=== PATIENT | female | born 1990 | race African-American/Black ===

== ENCOUNTER 2016-10-24 02:37 | Inpatient (IN) | payer MEDICAID, OTHER ==
[~2016-10-24] VITALS: Ht 149.9 cm; Wt 81.6 kg
[~2016-10-24 02:37] MED LIST: ARIP10TA14 PO; DIVA500T52 PO; HYDR-4031 PO
[2016-10-24 03:19] LABS: BASOPHILS # (AUTO) 0.15 K/uL (0.00-0.20); BASOPHILS % (AUTO) 0.8 % (0.0-2.0); EOSINOPHILS # (AUTO) 0.02 K/uL (0.00-0.70); EOSINOPHILS % (AUTO) 0.12 % (1.0-6.0); HEMATOCRIT 44.1 % (36-46); HEMOGLOBIN 14.7 g/dL (12.0-16.0); LYMPHOCYTES # (AUTO) 3.1 K/uL (1.0-4.8); LYMPHOCYTES % (AUTO) 15.6 % (22.0-44.0); MEAN CORPUSCULAR HEMOGLOBIN 30.7 pg (26.0-34.0); MEAN CORPUSCULAR HGB CONC 33.4 G/dL (31.0-37.0); MEAN CORPUSCULAR VOLUME 92 fL (80-100); MONOCYTES # (AUTO) 1.2 K/uL (0.1-1.0); MONOCYTES % (AUTO) 6.1 % (2.0-9.0); NEUTROPHILS # (AUTO) 15.3 K/uL (1.8-7.7); NEUTROPHILS % (AUTO) 77.4 % (40.0-70.0); PLATELET COUNT (AUTO) 378 K/uL (150-450); RED BLOOD CELL COUNT(AUTO) 4.79 MIL/uL (4.00-5.20); RED CELL DISTRIBUTION WIDTH 14.3 % (11.5-14.5); WHITE BLOOD COUNT (AUTO) 19.8 K/uL (4.5-11.0)
[2016-10-24] MEDS ORDERED: HALOPERIDOL LACTATE 5 MG/ML VIAL IM ONE (03:30)
[2016-10-24] MEDS ORDERED: LORazepam 2 MG/ML VIAL IM ONE (03:30)
[2016-10-24] MEDS ORDERED: DiphenhydrAMINE HCL 50 MG/ML VIAL IM ONE (03:30)
[2016-10-24 03:38] LABS: ANION GAP 14 mmol/L (8-16); CALCIUM, TOTAL 8.8 mg/dL (8.8-10.5); CARBON DIOXIDE 21 mmol/L (22-29); CHLORIDE 102 mmol/L (98-107); GLOMERULAR FILTR. RATE CALC > 60 mL/min (>60); POTASSIUM 3.8 mmol/L (3.5-5.1); SODIUM SERUM 137 mmol/L (136-145); UREA NITROGEN, BLOOD 5 mg/dL (7-18)
[2016-10-24 03:44] LABS: ALANINE AMINOTRANSFERASE 45 U/L (12-78); ALBUMIN 3.7 g/dL (3.4-5.0); ASPARTATE AMINOTRANSFERASE 64 U/L (15-37); BILIRUBIN,TOTAL 0.4 mg/dL (0.1-1.0); TOTAL PROTEIN, SERUM 7.4 g/dL (6.4-8.2)
[2016-10-24] MEDS ORDERED: SODIUM CHLORIDE 0.9% 250 ML IRRIG SOLUTION BOTTLE IRRIG ONE (04:30)
[2016-10-24] MEDS ORDERED: PERTUSS(ACELL),DIPH,TET VAC/PF 0.5 ML VIAL IM ONE (04:30)
[2016-10-24] MEDS ORDERED: LIDOCAINE HCL BUFFERED 1% W/EPI 1:100,000 20 ML VIAL INJ ONE (04:45)
[2016-10-24 06:37] LABS: VALPROIC ACID < 3 mcg/mL (50-100)
[2016-10-24] MEDS ORDERED: ZOLPIDEM TARTRATE 10 MG TABLET PO PRN (08:45)
[2016-10-24] MEDS: HALOPERIDOL 5 MG TABLET PO PRN (11:04)
[2016-10-24] MEDS: LORazepam 2 MG TABLET PO PRN ×2 (11:04→19:31)
[2016-10-24 11:10] VITALS: BP 130/71
[2016-10-24 11:11] VITALS: BP 130/71
[2016-10-24 11:43] LABS: APPEARANCE,URINE CLOUDY (CLEAR); GLUCOSE, URINE (UA) NEGATIVE (NEGATIVE); KETONES,URINE NEGATIVE (NEGATIVE); LEUKOCYTE ESTERASE ,URINE TRACE (NEGATIVE); OCCULT BLOOD,URINE LARGE (NEGATIVE); PROTEIN,URINE NEGATIVE (NEGATIVE)
[2016-10-24 11:52] LABS: ADD UA MICROSCOPIC YES
[2016-10-24 12:10] LABS: SQUAMOUS EPITHELIAL CELL,UR Many /LPF (None Seen)
[2016-10-24] MEDS: DIVALPROEX SODIUM 500 MG DR TABLET PO SCH (20:29)
[2016-10-25 01:37] VITALS: BP 102/89
[2016-10-25] MEDS: IBUPROFEN 400 MG TABLET PO PRN ×2 (02:20→13:42)
[2016-10-25] MEDS: LORazepam 2 MG TABLET PO PRN ×2 (06:21→08:49)
[2016-10-25 07:02] LABS: BASOPHILS % (AUTO) 0.3 % (0.0-2.0); EOSINOPHILS % (AUTO) 0.7 % (1.0-6.0); HEMATOCRIT 42.8 % (36-46); HEMOGLOBIN 13.9 g/dL (12.0-16.0); LYMPHOCYTES # (AUTO) 5.1 K/uL (1.0-4.8); LYMPHOCYTES % (AUTO) 29.4 % (22.0-44.0); MEAN CORPUSCULAR HEMOGLOBIN 30.6 pg (26.0-34.0); MEAN CORPUSCULAR HGB CONC 32.6 G/dL (31.0-37.0); MEAN CORPUSCULAR VOLUME 94 fL (80-100); MONOCYTES # (AUTO) 1.1 K/uL (0.1-1.0); MONOCYTES % (AUTO) 6.1 % (2.0-9.0); NEUTROPHILS % (AUTO) 63.5 % (40.0-70.0); PLATELET COUNT (AUTO) 310 K/uL (150-450); RED BLOOD CELL COUNT(AUTO) 4.55 MIL/uL (4.00-5.20); RED CELL DISTRIBUTION WIDTH 14.1 % (11.5-14.5); WHITE BLOOD COUNT (AUTO) 17.3 K/uL (4.5-11.0)
[2016-10-25] MEDS: DIVALPROEX SODIUM 500 MG DR TABLET PO SCH ×2 (08:13→20:41)
[2016-10-25] MEDS: ARIPiprazole 10 MG TABLET PO SCH (08:13)
[2016-10-25 08:30] VITALS: BP 136/67
[2016-10-25] MEDS: CEPHALEXIN MONOHYDRATE 500 MG CAPSULE PO SCH ×3 (08:49→23:55)
[2016-10-25] MEDS: HALOPERIDOL 5 MG TABLET PO PRN (08:49)
[2016-10-25 16:45] VITALS: BP 131/89
[2016-10-26 03:45] VITALS: BP 128/87
[2016-10-26] MEDS: IBUPROFEN 400 MG TABLET PO PRN (03:50)
[2016-10-26] MEDS: LORazepam 2 MG TABLET PO PRN ×3 (04:42→19:35)
[2016-10-26 07:10] LABS: BASOPHILS # (AUTO) 0.03 K/uL (0.00-0.20); BASOPHILS % (AUTO) 0.2 % (0.0-2.0); EOSINOPHILS # (AUTO) 0.05 K/uL (0.00-0.70); EOSINOPHILS % (AUTO) 0.36 % (1.0-6.0); HEMATOCRIT 41.5 % (36-46); HEMOGLOBIN 13.8 g/dL (12.0-16.0); LYMPHOCYTES # (AUTO) 2.2 K/uL (1.0-4.8); LYMPHOCYTES % (AUTO) 17.7 % (22.0-44.0); MEAN CORPUSCULAR HEMOGLOBIN 30.6 pg (26.0-34.0); MEAN CORPUSCULAR HGB CONC 33.2 G/dL (31.0-37.0); MEAN CORPUSCULAR VOLUME 92 fL (80-100); MONOCYTES # (AUTO) 0.8 K/uL (0.1-1.0); MONOCYTES % (AUTO) 6.4 % (2.0-9.0); NEUTROPHILS # (AUTO) 9.4 K/uL (1.8-7.7); NEUTROPHILS % (AUTO) 75.3 % (40.0-70.0); PLATELET COUNT (AUTO) 306 K/uL (150-450); RED BLOOD CELL COUNT(AUTO) 4.49 MIL/uL (4.00-5.20); RED CELL DISTRIBUTION WIDTH 14.7 % (11.5-14.5); WHITE BLOOD COUNT (AUTO) 12.5 K/uL (4.5-11.0)
[2016-10-26] MEDS: DIVALPROEX SODIUM 500 MG DR TABLET PO SCH ×2 (08:17→22:02)
[2016-10-26] MEDS: CEPHALEXIN MONOHYDRATE 500 MG CAPSULE PO SCH ×3 (08:17→23:52)
[2016-10-26] MEDS: ARIPiprazole 10 MG TABLET PO SCH (08:18)
[2016-10-26 09:25] VITALS: BP 135/89
[2016-10-26] MEDS: NEOMYCIN/BACITRACIN/POLYMYXIN B 30 GM OINTMENT TP SCH (12:00)
[2016-10-26] MEDS ORDERED: IBUPROFEN 600 MG TABLET PO PRN ×2 (14:00→18:00)
[2016-10-26 14:07] VITALS: BP 130/76
[2016-10-26] MEDS: HALOPERIDOL 5 MG TABLET PO PRN ×2 (15:27→19:35)
[2016-10-26] MEDS: NICOTINE 21 MG/24 HOUR PATCH TD SCH (16:43)
[2016-10-26 17:12] VITALS: BP 121/73
[2016-10-26] MEDS ORDERED: ACETAMINOPHEN 325 MG TABLET PO PRN (17:30)
[2016-10-27 04:51] VITALS: BP 134/89
[2016-10-27] MEDS: CEPHALEXIN MONOHYDRATE 500 MG CAPSULE PO SCH (08:02)
[2016-10-27] MEDS: LORazepam 2 MG TABLET PO PRN ×2 (08:02→12:44)
[2016-10-27] MEDS: HALOPERIDOL 5 MG TABLET PO PRN (08:02)
[2016-10-27] MEDS: DIVALPROEX SODIUM 500 MG DR TABLET PO SCH (08:02)
[2016-10-27] MEDS: ARIPiprazole 10 MG TABLET PO SCH (08:02)
[2016-10-27] MEDS: NICOTINE 21 MG/24 HOUR PATCH TD SCH (08:07)
[2016-10-27] MEDS: NEOMYCIN/BACITRACIN/POLYMYXIN B 30 GM OINTMENT TP SCH (08:08)
[2016-10-27 08:47] VITALS: BP 153/88
[2016-10-27] MEDS ORDERED: DIVA500T35 PO (12:00)
[2016-10-27] MEDS ORDERED: CEPH500 PO (12:01)
[2016-11-16] MEDS ORDERED: IBUP-2070 PO (08:44)
[2016-11-20] MEDS ORDERED: LINE600 PO (13:26)
== END 2016-10-27 13:15 | disposition home or self-care (01) | DRG 751 ==
LOC: EMS 02:38 → EEVIPCON 02:38 → 3EC 09:58
PROC: 0HQKXZZ Repair Right Lower Leg Skin, External Approach (ICD-10-PCS; principal; 2016-10-24)
DX: F32.0 Major depressive disorder, single episode, mild (principal); Z78.1 Physical restraint status; F31.9 Bipolar disorder, unspecified; F25.0 Schizoaffective disorder, bipolar type; F10.129 Alcohol abuse with intoxication, unspecified; F12.90 Cannabis use, unspecified, uncomplicated; S00.83XA Contusion of other part of head, initial encounter; S81.811A Laceration without foreign body, right lower leg, initial encounter; F41.9 Anxiety disorder, unspecified; Y90.6 Blood alcohol level of 120-199 mg/100 ml; Y04.0XXA Assault by unarmed brawl or fight, initial encounter; Z79.899 Other long term (current) drug therapy; Z59.0 Homelessness; Z71.41 Alcohol abuse counseling and surveillance of alcoholic; Z71.6 Tobacco abuse counseling; Z28.21 Immunization not carried out because of patient refusal; Y93.89 Activity, other specified; Y92.89 Other specified places as the place of occurrence of the external cause; Y99.8 Other external cause status
CPT/HCPCS: 70450; 70486; 72125; 90471; 90715; 96372; 99285; G0480; J0690; J1200; J1630; J2060; J3490

== ENCOUNTER → 2016-11-16 | Outpatient (CLI) | payer OTHER ==
[~2016-11-16] VITALS: Ht 149.9 cm; Wt 83.9 kg
[~2016-11-16] MED LIST changes: +CEPH500 PO; +DIVA500T35 PO; -HYDR-4031 PO; +IBUP-2070 PO; +LINE600 PO
[2016-11-16 08:32] VITALS: BP 113/67
== END | disposition home or self-care (01) ==
LOC: HBOWC 07:17
PROVIDERS: ATTEND Emergency Medicine
DX: L97.811 Non-pressure chronic ulcer of other part of right lower leg limited to breakdown of skin (principal); L97.511 Non-pressure chronic ulcer of other part of right foot limited to breakdown of skin; F31.9 Bipolar disorder, unspecified; F10.129 Alcohol abuse with intoxication, unspecified; F12.90 Cannabis use, unspecified, uncomplicated; Z72.0 Tobacco use
CPT/HCPCS: 97597

== ENCOUNTER → 2016-11-23 | Outpatient (CLI) | payer OTHER ==
[2016-11-23 11:29] VITALS: BP 107/64
== END | disposition home or self-care (01) ==
LOC: HBOWC 10:54
PROVIDERS: ATTEND Emergency Medicine Undersea and Hyperbaric Medicine
DX: L97.811 Non-pressure chronic ulcer of other part of right lower leg limited to breakdown of skin (principal); F10.129 Alcohol abuse with intoxication, unspecified; F31.9 Bipolar disorder, unspecified; F12.90 Cannabis use, unspecified, uncomplicated; I48.91 Unspecified atrial fibrillation; B95.62 Methicillin resistant Staphylococcus aureus infection as the cause of diseases classified elsewhere; Z72.0 Tobacco use
CPT/HCPCS: 97597

== ENCOUNTER → 2016-11-30 | Outpatient (CLI) | payer OTHER ==
[~2016-11-30] MED LIST changes: -CEPH500 PO; +LIDOCAINE HCL 2% 5 ML JELLY TP ONE
[2016-11-30 12:10] VITALS: BP 120/82
== END | disposition home or self-care (01) ==
LOC: HBOWC 10:30
PROVIDERS: ATTEND Emergency Medicine
DX: L97.812 Non-pressure chronic ulcer of other part of right lower leg with fat layer exposed (principal); L97.512 Non-pressure chronic ulcer of other part of right foot with fat layer exposed; F31.9 Bipolar disorder, unspecified; I48.91 Unspecified atrial fibrillation; F41.9 Anxiety disorder, unspecified; F10.129 Alcohol abuse with intoxication, unspecified; Z72.0 Tobacco use
CPT/HCPCS: 97597

== ENCOUNTER → 2016-12-18 | Outpatient (CLI) | payer OTHER ==
[~2016-12-18] MED LIST changes: -LIDOCAINE HCL 2% 5 ML JELLY TP ONE
[2016-12-18 13:41] VITALS: BP 116/76
== END | disposition home or self-care (01) ==
LOC: HBOWC 13:21
PROVIDERS: ATTEND Emergency Medicine Undersea and Hyperbaric Medicine
DX: L97.812 Non-pressure chronic ulcer of other part of right lower leg with fat layer exposed (principal); F31.9 Bipolar disorder, unspecified; B95.62 Methicillin resistant Staphylococcus aureus infection as the cause of diseases classified elsewhere; F10.129 Alcohol abuse with intoxication, unspecified; F41.9 Anxiety disorder, unspecified; F12.90 Cannabis use, unspecified, uncomplicated; Z72.0 Tobacco use; F32.9 Major depressive disorder, single episode, unspecified; F25.0 Schizoaffective disorder, bipolar type
CPT/HCPCS: 97597

== ENCOUNTER → 2017-01-01 | Outpatient (CLI) | payer OTHER ==
[2017-01-01 13:46] VITALS: BP 106/54
== END | disposition home or self-care (01) ==
LOC: HBOWC 13:06
PROVIDERS: ATTEND Emergency Medicine
DX: L97.812 Non-pressure chronic ulcer of other part of right lower leg with fat layer exposed (principal); L97.511 Non-pressure chronic ulcer of other part of right foot limited to breakdown of skin; F31.9 Bipolar disorder, unspecified; I48.91 Unspecified atrial fibrillation; Z86.14 Personal history of Methicillin resistant Staphylococcus aureus infection; Z72.0 Tobacco use; F10.10 Alcohol abuse, uncomplicated
CPT/HCPCS: 97597

== ENCOUNTER 2017-10-20 19:47 | Inpatient (IN) | payer MEDICAID, OTHER ==
[~2017-10-20] VITALS: Ht 152.4 cm; Wt 65.4 kg
[~2017-10-20 19:47] MED LIST changes: -ARIP10TA14 PO; +ARIP10TA8 PO
[2017-10-20] MEDS ORDERED: DiphenhydrAMINE HCL 50 MG/ML VIAL IM ONE (20:30)
[2017-10-20] MEDS ORDERED: HALOPERIDOL LACTATE 5 MG/ML VIAL IM ONE (20:30)
[2017-10-20] MEDS ORDERED: LORazepam 2 MG/ML VIAL IM ONE (20:30)
[2017-10-20 21:29] LABS: AMPHET/METH SCREEN,URINE NEGATIVE (NEGATIVE); BARBITURATE SCREEN, URINE NEGATIVE (NEGATIVE); BENZODIAZEPINES SCREEN,URINE NEGATIVE (NEGATIVE); CANNABINOID SCREEN,URINE POSITIVE (NEGATIVE); COCAINE SCREEN,URINE NEGATIVE (NEGATIVE); METHADONE SCREEN, URINE NEGATIVE (NEGATIVE); OPIATE SCREEN,URINE NEGATIVE (NEGATIVE); PHENCYCLIDINE SCREEN,URINE NEGATIVE (NEGATIVE)
[2017-10-20 22:34] LABS: EOSINOPHILS % (AUTO) 0.5 % (1.0-6.0); HEMATOCRIT 38.5 % (36-46); HEMOGLOBIN 12.7 g/dL (12.0-16.0); LYMPHOCYTES # (AUTO) 2.7 K/uL (1.0-4.8); LYMPHOCYTES % (AUTO) 20.6 % (22.0-44.0); MEAN CORPUSCULAR HEMOGLOBIN 30.7 pg (26.0-34.0); MEAN CORPUSCULAR VOLUME 93 fL (80-100); MONOCYTES # (AUTO) 0.6 K/uL (0.1-1.0); MONOCYTES % (AUTO) 4.8 % (2.0-9.0); NEUTROPHILS # (AUTO) 9.5 K/uL (1.8-7.7); NEUTROPHILS % (AUTO) 73.1 % (40.0-70.0); PLATELET COUNT (AUTO) 297 K/uL (150-450); RED BLOOD CELL COUNT(AUTO) 4.14 MIL/uL (4.00-5.20); RED CELL DISTRIBUTION WIDTH 13.5 % (11.5-14.5)
[2017-10-20] MEDS ORDERED: ZOLPIDEM TARTRATE 10 MG TABLET PO PRN (22:45)
[2017-10-20 22:55] LABS: ALANINE AMINOTRANSFERASE 18 U/L (12-78); ALBUMIN 3.2 g/dL (3.4-5.0); ALKALINE PHOSPHATASE 145 U/L (46-116); ANION GAP 9 mmol/L (8-16); ASPARTATE AMINOTRANSFERASE 23 U/L (15-37); BILIRUBIN,TOTAL 0.5 mg/dL (0.1-1.0); CALCIUM, TOTAL 8.8 mg/dL (8.8-10.5); CARBON DIOXIDE 25 mmol/L (22-29); CHLORIDE 104 mmol/L (98-107); GLUCOSE,RANDOM 93 mg/dL (70-110); POTASSIUM 3.6 mmol/L (3.5-5.1); SODIUM SERUM 138 mmol/L (136-145); TOTAL PROTEIN, SERUM 6.8 g/dL (6.4-8.2); UREA NITROGEN, BLOOD 8 mg/dL (7-18)
[2017-10-20 22:56] LABS: VALPROIC ACID < 3 mcg/mL (50-100)
[2017-10-20 22:59] LABS: CREATININE 0.48 mg/dL (0.60-1.30); GLOMERULAR FILTR. RATE CALC > 60 mL/min (>60)
[2017-10-21 01:00] VITALS: BP 116/88
[2017-10-21] MEDS ORDERED: INFLUENZA VIRUS VACCINE QVS 2017-18 (3YR+)/PF 60 MCG/0.5 ML SYRINGE IM ONE (01:30)
[2017-10-21 08:20] VITALS: BP 121/69
[2017-10-21 08:53] LABS: CHOL/HDL RATIO 2.6 (3.9-5.7)
[2017-10-21] MEDS: NICOTINE 7 MG/24 HOUR PATCH TD SCH (11:02)
[2017-10-21] MEDS ORDERED: IBUPROFEN 400 MG TABLET PO PRN (11:30)
[2017-10-21] MEDS ORDERED: ACETAMINOPHEN 325 MG TABLET PO PRN (11:30)
[2017-10-21 12:11] VITALS: BP 121/69
[2017-10-21 16:02] VITALS: BP 110/80
[2017-10-21] MEDS: LORazepam 2 MG TABLET PO PRN (16:05)
[2017-10-21] MEDS: HALOPERIDOL 5 MG TABLET PO PRN (16:05)
[2017-10-21] MEDS: DIVALPROEX SODIUM 500 MG DR TABLET PO SCH (21:00)
[2017-10-22 03:02] VITALS: BP 129/70
[2017-10-22] MEDS: LORazepam 2 MG TABLET PO PRN ×4 (03:33→17:04)
[2017-10-22] MEDS: HALOPERIDOL 5 MG TABLET PO PRN ×2 (07:48→14:51)
[2017-10-22] MEDS: ARIPiprazole 15 MG TABLET PO SCH (07:59)
[2017-10-22] MEDS: DIVALPROEX SODIUM 500 MG DR TABLET PO SCH ×2 (07:59→20:30)
[2017-10-22 08:21] VITALS: BP 124/74
[2017-10-22] MEDS: NICOTINE 7 MG/24 HOUR PATCH TD SCH (08:37)
[2017-10-22 08:56] LABS: BASOPHILS % (AUTO) 0.7 % (0.0-2.0); EOSINOPHILS % (AUTO) 0.9 % (1.0-6.0); HEMATOCRIT 42.6 % (36-46); HEMOGLOBIN 14.4 g/dL (12.0-16.0); LYMPHOCYTES # (AUTO) 3.6 K/uL (1.0-4.8); LYMPHOCYTES % (AUTO) 35.8 % (22.0-44.0); MEAN CORPUSCULAR HEMOGLOBIN 31.4 pg (26.0-34.0); MEAN CORPUSCULAR HGB CONC 33.7 G/dL (31.0-37.0); MEAN CORPUSCULAR VOLUME 93 fL (80-100); MONOCYTES # (AUTO) 0.6 K/uL (0.1-1.0); MONOCYTES % (AUTO) 6.2 % (2.0-9.0); NEUTROPHILS # (AUTO) 5.7 K/uL (1.8-7.7); NEUTROPHILS % (AUTO) 56.4 % (40.0-70.0); PLATELET COUNT (AUTO) 327 K/uL (150-450); RED BLOOD CELL COUNT(AUTO) 4.57 MIL/uL (4.00-5.20); RED CELL DISTRIBUTION WIDTH 13.8 % (11.5-14.5)
[2017-10-22 09:25] LABS: HEMOGLOBIN A1C 5.2 % (4.5-6.2)
[2017-10-22 09:51] LABS: CHOL/HDL RATIO 3.1 (3.9-5.7); THYROID STIMULATING HORMONE 1.04 uIU/mL (0.36-3.74)
[2017-10-22 16:02] VITALS: BP 141/98
[2017-10-23 06:40] VITALS: BP 138/88
[2017-10-23] MEDS: DIVALPROEX SODIUM 500 MG DR TABLET PO SCH (08:27)
[2017-10-23] MEDS: ARIPiprazole 15 MG TABLET PO SCH (08:27)
[2017-10-23] MEDS: LORazepam 2 MG TABLET PO PRN (08:27)
[2017-10-23 08:28] VITALS: BP 126/86
[2017-10-23] MEDS: NICOTINE 7 MG/24 HOUR PATCH TD SCH (08:31)
== END 2017-10-23 10:10 | disposition home or self-care (01) | DRG 750 ==
LOC: EMS 19:49 → B3A 23:00
PROVIDERS: ADMIT Psychiatry & Neurology Psychiatry; ATTEND Psychiatry & Neurology Psychiatry
PROC: 3E0234Z Introduction of Serum, Toxoid and Vaccine into Muscle, Percutaneous Approach (ICD-10-PCS; principal; 2017-10-21)
DX: F20.0 Paranoid schizophrenia (principal); R45.850 Homicidal ideations; R45.851 Suicidal ideations; F31.9 Bipolar disorder, unspecified; D72.829 Elevated white blood cell count, unspecified; Z79.899 Other long term (current) drug therapy; Z23 Encounter for immunization
CPT/HCPCS: 51702; 83036; 84443; 96372; 99291; G0480; J1200; J1630; J2060

== ENCOUNTER 2020-04-10 09:01 | Inpatient (IN) | payer MEDICAID ==
[~2020-04-10 09:01] MED LIST changes: +DIVA-112 PO; +DIVA-80 PO; -DIVA500T35 PO; -DIVA500T52 PO; -IBUP-2070 PO; -LINE600 PO
[2020-04-10] MEDS ORDERED: HALOPERIDOL LACTATE 5 MG/ML VIAL IM ONE ×2 (09:30→16:00)
[2020-04-10] MEDS ORDERED: DiphenhydrAMINE HCL 50 MG/ML VIAL IM ONE ×2 (09:30→16:00)
[2020-04-10] MEDS ORDERED: LORazepam 2 MG/ML VIAL IM ONE ×2 (09:30→16:00)
[2020-04-10] MEDS ORDERED: DiphenhydrAMINE HCL 50 MG/ML VIAL ONE (09:54)
[2020-04-10] MEDS ORDERED: HALOPERIDOL LACTATE 5 MG/ML VIAL ONE (09:54)
[2020-04-10] MEDS ORDERED: LORazepam 2 MG/ML VIAL ONE (09:55)
[2020-04-10 16:42] VITALS: BP 130/68
[2020-04-10] MEDS: DIVALPROEX SODIUM 500 MG DR TABLET PO SCH (21:00)
[2020-04-10] MEDS: ZOLPIDEM TARTRATE 10 MG TABLET PO PRN (22:49)
[2020-04-11 01:31] VITALS: BP 128/62
[2020-04-11] MEDS ORDERED: HALOPERIDOL LACTATE 5 MG/ML VIAL IM ONE ×3 (05:45→19:30)
[2020-04-11] MEDS ORDERED: LORazepam 2 MG/ML VIAL IM ONE ×3 (05:45→19:30)
[2020-04-11] MEDS ORDERED: DiphenhydrAMINE HCL 50 MG/ML VIAL IM ONE ×2 (05:45→10:45)
[2020-04-11] MEDS ORDERED: BACITRACIN 28.4 GM OINTMENT TP PRN (06:30)
[2020-04-11] MEDS ORDERED: BENZOCAINE/MENTHOL LOZENGE MM PRN (06:30)
[2020-04-11] MEDS ORDERED: CloNIDine HCL 0.1 MG TABLET PO PRN (06:30)
[2020-04-11] MEDS ORDERED: LOPERAMIDE HCL 2 MG CAPSULE PO PRN (06:30)
[2020-04-11] MEDS ORDERED: DOCUSATE SODIUM 100 MG CAPSULE PO PRN (06:30)
[2020-04-11] MEDS ORDERED: OMEPRAZOLE 20 MG CAPSULE PO PRN (06:30)
[2020-04-11] MEDS ORDERED: ALBUTEROL SULFATE HFA 90 MCG/PUFF 8 GM INHALER IH PRN (06:30)
[2020-04-11] MEDS ORDERED: ONDANSETRON HCL 4 MG TABLET PO PRN (06:30)
[2020-04-11] MEDS ORDERED: PETROLATUM,WHITE 28 GM JELLY TP PRN (06:30)
[2020-04-11] MEDS ORDERED: MAG HYDROX/AL HYDROX/SIMETH ES 30 ML SUSPENSION UDCUP PO PRN (06:30)
[2020-04-11] MEDS ORDERED: MAGNESIUM HYDROXIDE SUSPENSION 30 ML UDCUP PO PRN (06:30)
[2020-04-11 07:58] LABS: BASOPHILS % (AUTO) 0.7 % (0.0-2.0); EOSINOPHILS % (AUTO) 0.7 % (1.0-6.0); HEMATOCRIT 37.8 % (36-46); HEMOGLOBIN 12.7 g/dL (12.0-16.0); LYMPHOCYTES % (AUTO) 27.6 % (22.0-44.0); MEAN CORPUSCULAR HEMOGLOBIN 35.9 pg (26.0-34.0); MEAN CORPUSCULAR HGB CONC 33.5 G/dL (31.0-37.0); MEAN CORPUSCULAR VOLUME 107 fL (80-100); MONOCYTES # (AUTO) 0.6 K/uL (0.1-1.0); MONOCYTES % (AUTO) 8.5 % (2.0-9.0); NEUTROPHILS # (AUTO) 4.4 K/uL (1.8-7.7); NEUTROPHILS % (AUTO) 62.5 % (40.0-70.0); PLATELET COUNT (AUTO) 343 K/uL (150-450); RED BLOOD CELL COUNT(AUTO) 3.54 MIL/uL (4.00-5.20); RED CELL DISTRIBUTION WIDTH 16.1 % (11.5-14.5)
[2020-04-11] MEDS: DIVALPROEX SODIUM 500 MG DR TABLET PO SCH ×2 (08:32→21:00)
[2020-04-11] MEDS: ARIPiprazole 15 MG TABLET PO SCH (08:32)
[2020-04-11 08:34] LABS: CHOL/HDL RATIO 2.1 (3.9-5.7); CHOLESTEROL 140 mg/dL (131-200); HCG,QUANTITATIVE < 1 mIU/mL (0-6); HDL CHOLESTEROL 68 mg/dL (40-60); LDL CHOL (CALC.) 63 mg/dL (0-130); TRIGLYCERIDES 46 mg/dL (15-150)
[2020-04-11 08:38] VITALS: BP 100/67
[2020-04-11] MEDS: LORazepam 2 MG TABLET PO PRN ×2 (09:38→16:02)
[2020-04-11] MEDS: HALOPERIDOL 5 MG TABLET PO PRN ×2 (09:38→16:02)
[2020-04-11 18:19] VITALS: BP 105/73
[2020-04-11] MEDS ORDERED: DIVA-112 PO (19:34)
[2020-04-11] MEDS ORDERED: ARIP15TA2 PO (19:34)
[2020-04-11 21:12] VITALS: BP 118/82
[2020-04-11] MEDS: ACETAMINOPHEN 325 MG TABLET PO PRN (21:59)
[2020-04-12 01:13] VITALS: BP 118/76
[2020-04-12] MEDS: ZOLPIDEM TARTRATE 10 MG TABLET PO PRN ×2 (01:56→22:41)
[2020-04-12] MEDS: LORazepam 2 MG TABLET PO PRN ×3 (01:56→18:08)
[2020-04-12] MEDS: ARIPiprazole 15 MG TABLET PO SCH (08:03)
[2020-04-12] MEDS: DIVALPROEX SODIUM 500 MG DR TABLET PO SCH ×2 (08:03→20:15)
[2020-04-12] MEDS: HALOPERIDOL 5 MG TABLET PO PRN (08:35)
[2020-04-12] MEDS ORDERED: LORazepam 2 MG/ML VIAL ONE (09:43)
[2020-04-12] MEDS ORDERED: HALOPERIDOL LACTATE 5 MG/ML VIAL ONE (09:43)
[2020-04-12] MEDS ORDERED: HALOPERIDOL LACTATE 5 MG/ML VIAL IM ONE (09:45)
[2020-04-12] MEDS ORDERED: LORazepam 2 MG/ML VIAL IM ONE (09:45)
[2020-04-12] MEDS ORDERED: ChlorproMAZINE HCL 25 MG/ML 2 ML AMP ONE (11:05)
[2020-04-12] MEDS ORDERED: ChlorproMAZINE HCL 25 MG/ML 2 ML AMP IM ONE (11:15)
[2020-04-12 18:00] VITALS: BP 117/67
[2020-04-12] MEDS: ChlorproMAZINE HCL 50 MG TABLET PO PRN (18:08)
[2020-04-12] MEDS: FluPHENAZine HCL 10 MG TABLET PO SCH (20:15)
[2020-04-12] MEDS ORDERED: HALOPERIDOL 10 MG TABLET PO SCH (21:00)
[2020-04-13 08:15] VITALS: BP 103/59
[2020-04-13] MEDS: DIVALPROEX SODIUM 500 MG DR TABLET PO SCH ×2 (08:26→20:59)
[2020-04-13] MEDS: LORazepam 2 MG TABLET PO PRN ×4 (08:26→22:11)
[2020-04-13] MEDS: ARIPiprazole 15 MG TABLET PO SCH (08:26)
[2020-04-13] MEDS: IBUPROFEN 600 MG TABLET PO PRN (09:11)
[2020-04-13] MEDS: ChlorproMAZINE HCL 50 MG TABLET PO PRN ×3 (12:34→22:11)
[2020-04-13 16:33] VITALS: BP 125/63
[2020-04-13] MEDS: FluPHENAZine HCL 10 MG TABLET PO SCH (20:59)
[2020-04-13] MEDS: ZOLPIDEM TARTRATE 10 MG TABLET PO PRN (20:59)
[2020-04-14] MEDS: ACETAMINOPHEN 325 MG TABLET PO PRN (01:29)
[2020-04-14 03:27] VITALS: BP 100/72
[2020-04-14] MEDS: IBUPROFEN 600 MG TABLET PO PRN ×2 (06:10→18:17)
[2020-04-14] MEDS: ChlorproMAZINE HCL 50 MG TABLET PO PRN ×3 (06:10→20:47)
[2020-04-14 08:20] VITALS: BP 109/67
[2020-04-14] MEDS: ARIPiprazole 15 MG TABLET PO SCH (09:02)
[2020-04-14] MEDS: LORazepam 2 MG TABLET PO PRN ×2 (09:02→18:33)
[2020-04-14] MEDS: DIVALPROEX SODIUM 500 MG DR TABLET PO SCH ×2 (09:02→20:47)
[2020-04-14] MEDS ORDERED: LORazepam 2 MG/ML VIAL IM ONE (16:00)
[2020-04-14] MEDS ORDERED: ChlorproMAZINE HCL 25 MG/ML 2 ML AMP IM ONE (16:00)
[2020-04-14] MEDS ORDERED: DiphenhydrAMINE HCL 50 MG/ML VIAL IM ONE (16:00)
[2020-04-14] MEDS ORDERED: DiphenhydrAMINE HCL 50 MG/ML VIAL ONE (16:02)
[2020-04-14] MEDS ORDERED: ChlorproMAZINE HCL 25 MG/ML 2 ML AMP ONE (16:02)
[2020-04-14 16:25] VITALS: BP 106/74
[2020-04-14] MEDS: ZOLPIDEM TARTRATE 10 MG TABLET PO PRN (20:46)
[2020-04-14] MEDS: FluPHENAZine HCL 10 MG TABLET PO SCH (20:47)
[2020-04-15 00:54] VITALS: BP 108/67
[2020-04-15] MEDS: IBUPROFEN 600 MG TABLET PO PRN ×2 (05:25→16:00)
[2020-04-15] MEDS: LORazepam 2 MG TABLET PO PRN ×2 (07:19→11:48)
[2020-04-15] MEDS: DIVALPROEX SODIUM 500 MG DR TABLET PO SCH ×2 (08:03→21:02)
[2020-04-15] MEDS: ARIPiprazole 15 MG TABLET PO SCH (08:03)
[2020-04-15] MEDS: NICOTINE 14 MG/24 HOUR PATCH TD SCH (08:31)
[2020-04-15] MEDS: ChlorproMAZINE HCL 50 MG TABLET PO PRN ×2 (08:31→13:25)
[2020-04-15 17:18] VITALS: BP 108/68
[2020-04-15] MEDS: FluPHENAZine HCL 10 MG TABLET PO SCH (21:02)
[2020-04-16] MEDS: IBUPROFEN 600 MG TABLET PO PRN ×2 (03:43→17:16)
[2020-04-16 03:46] VITALS: BP 104/64
[2020-04-16] MEDS: ARIPiprazole 15 MG TABLET PO SCH (08:07)
[2020-04-16] MEDS: NICOTINE 14 MG/24 HOUR PATCH TD SCH (08:07)
[2020-04-16] MEDS: DIVALPROEX SODIUM 500 MG DR TABLET PO SCH ×2 (08:07→20:15)
[2020-04-16] MEDS: LORazepam 2 MG TABLET PO PRN ×3 (08:07→17:16)
[2020-04-16] MEDS: ChlorproMAZINE HCL 50 MG TABLET PO PRN ×2 (08:08→17:16)
[2020-04-16 08:16] VITALS: BP_SYST 113; BP_SYST 98; BP_DIAS 65; BP_DIAS 66
[2020-04-16 08:21] LABS: ANION GAP 5 mmol/L (8-16); CALCIUM, TOTAL 8.6 mg/dL (8.8-10.5); CARBON DIOXIDE 26 mmol/L (22-29); CHLORIDE 104 mmol/L (98-107); CREATININE 0.66 mg/dL (0.60-1.30); GLOMERULAR FILTR. RATE CALC > 60 mL/min (>60); GLUCOSE,RANDOM 78 mg/dL (70-110); POTASSIUM 4.5 mmol/L (3.5-5.1); SODIUM SERUM 135 mmol/L (136-145); UREA NITROGEN, BLOOD 11 mg/dL (7-18)
[2020-04-16 17:15] VITALS: BP 106/85
[2020-04-16] MEDS: FluPHENAZine HCL 10 MG TABLET PO SCH (20:15)
[2020-04-17] MEDS: ZOLPIDEM TARTRATE 10 MG TABLET PO PRN (01:23)
[2020-04-17 01:34] VITALS: BP 107/82
[2020-04-17] MEDS: LORazepam 2 MG TABLET PO PRN (06:21)
[2020-04-17 08:12] VITALS: BP 107/63
[2020-04-17] MEDS: DIVALPROEX SODIUM 500 MG DR TABLET PO SCH (08:14)
[2020-04-17] MEDS: NICOTINE 14 MG/24 HOUR PATCH TD SCH (08:14)
[2020-04-17] MEDS: ARIPiprazole 15 MG TABLET PO SCH (08:14)
[2020-04-17] MEDS ORDERED: FLUP10 PO (08:55)
== END 2020-04-17 10:20 | disposition home or self-care (01) | DRG 885 ==
LOC: B3A 10:05
PROVIDERS: ADMIT Psychiatry & Neurology Psychiatry; ATTEND Psychiatry & Neurology Psychiatry
DX: F25.9 Schizoaffective disorder, unspecified (principal); F12.90 Cannabis use, unspecified, uncomplicated; F41.9 Anxiety disorder, unspecified; G47.00 Insomnia, unspecified; K59.00 Constipation, unspecified; Z71.6 Tobacco abuse counseling; Z72.0 Tobacco use
CPT/HCPCS: J1200; J1630; J2060; J3230